=== PATIENT | male | born 1935 | race Caucasian/White ===

== ENCOUNTER 2016-12-20 14:03 | Outpatient (CLI) | payer MEDICARE, OTHER ==
[2016-12-20 19:28] LABS: BASOPHILS % (AUTO) 0.7 %; EOSINOPHILS # (AUTO) 0.1 10^3/uL (0.0-0.7); EOSINOPHILS % (AUTO) 1.7 %; HGB - HEMOGLOBIN 12.8 g/dL (14.0-18.0); LYMPHOCYTES # (AUTO) 1.5 10^3/uL (1.5-3.5); LYMPHOCYTES % (AUTO) 22.9 %; MEAN CORPUSCULAR HEMOGLOBIN 29.9 pg (27.0-31.0); MEAN CORPUSCULAR HGB CONC 32.9 g/dL (32.0-36.0); MEAN CORPUSCULAR VOLUME 90.9 fL (80.0-94.0); MONOCYTES # (AUTO) 0.8 10^3/uL (0.0-1.0); MONOCYTES % (AUTO) 11.4 %; NEUTROPHILS # (AUTO) 4.2 10^3/uL (1.5-6.6); NEUTROPHILS % (AUTO) 63.3 %; RED BLOOD COUNT 4.29 10^6/uL (4.70-6.10); RED CELL DISTRIBUTION WIDTH 13.6 % (12.0-15.0); UNCORRECTED WHITE BLOOD COUNT 6.7 x10^3/uL; WHITE BLOOD COUNT 6.7 x10^3/uL (4.8-10.8)
[2016-12-20 19:57] LABS: ALBUMIN/GLOBULIN RATIO 1.7 (1.0-2.2); BILIRUBIN,TOTAL 0.4 mg/dL (0.2-1.0); BUN - BLOOD UREA NITROGEN 42 mg/dL (6-20); CALCIUM 9.5 mg/dL (8.5-10.3); CARBON DIOXIDE - CO2 27 mmol/L (21-32); CHLORIDE 104 mmol/L (101-111); CHOL/HDL RATIO 3.8 (<5.0); CHOLESTEROL 152 mg/dL; CREATININE 2.6 mg/dL (0.6-1.2); GFR - MDRD 24 (>89); GLUCOSE 67 mg/dL (70-100); HDL CHOLESTEROL 40 mg/dL; LDL/HDL RATIO 2.1 (<3.6); POTASSIUM 4.9 mmol/L (3.5-5.0); SODIUM 138 mmol/L (135-145); TOTAL PROTEIN 6.4 g/dL (6.7-8.2); TRIGLYCERIDES 146 mg/dL; VLDL CHOLESTEROL 29 mg/dL
[2016-12-20 21:05] LABS: H. PYLORI IGG ANTIBODY Negative (Negative); HPYLORI NEG QC Negative (Negative); HPYLORI POS QC POSITIVE (Positive)
== END 2016-12-20 14:04 | disposition home or self-care (01) ==
LOC: LAB.F 14:03
PROVIDERS: ATTEND Internal Medicine
DX: R11.10 Vomiting, unspecified (principal); E78.00 Pure hypercholesterolemia, unspecified; N18.3 Chronic kidney disease, stage 3 (moderate); E78.5 Hyperlipidemia, unspecified; I12.9 Hypertensive chronic kidney disease with stage 1 through stage 4 chronic kidney disease, or unspecified chronic kidney disease
CPT/HCPCS: 36415; 80053; 80061; 85025; 87339

== ENCOUNTER 2017-01-17 13:42 | Outpatient (CLI) | payer MEDICARE, OTHER ==
[2017-01-17 19:14] LABS: CALCIUM 9.2 mg/dL (8.5-10.3); CREATININE 1.8 mg/dL (0.6-1.2); POTASSIUM 4.2 mmol/L (3.5-5.0); URIC ACID 7.7 mg/dL (2.6-7.2)
== END 2017-01-17 13:43 | disposition home or self-care (01) ==
LOC: LAB.F 13:42
PROVIDERS: ATTEND Internal Medicine
DX: N18.3 Chronic kidney disease, stage 3 (moderate) (principal)
CPT/HCPCS: 36415; 80048; 84550

== ENCOUNTER 2018-07-24 11:35 | Outpatient (CLI) | payer MEDICARE, OTHER ==
[2018-07-24 18:40] LABS: HGB - HEMOGLOBIN 14.1 g/dL (14.0-18.0); MEAN CORPUSCULAR HEMOGLOBIN 31.6 pg (27.0-31.0); MEAN CORPUSCULAR HGB CONC 33.4 g/dL (32.0-36.0); MEAN CORPUSCULAR VOLUME 94.5 fL (80.0-94.0); MEAN PLATELET VOLUME 8.6 fL (7.4-11.4); RED BLOOD COUNT 4.46 10^6/uL (4.70-6.10); RED CELL DISTRIBUTION WIDTH 13.8 % (12.0-15.0); WHITE BLOOD COUNT 5.6 x10^3/uL (4.8-10.8)
[2018-07-24 18:49] LABS: ALBUMIN/GLOBULIN RATIO 1.7 (1.0-2.2); ALKALINE PHOSPHATASE 47 IU/L (42-121); ALT ALANINE AMINOTRANSFERASE 22 IU/L (10-60); AST ASPARTATE AMINOTRANSFERASE 32 IU/L (10-42); BILIRUBIN,TOTAL 0.9 mg/dL (0.2-1.0); BUN - BLOOD UREA NITROGEN 28 mg/dL (6-20); CALCIUM 9.1 mg/dL (8.5-10.3); CARBON DIOXIDE - CO2 27 mmol/L (21-32); CHLORIDE 105 mmol/L (101-111); CHOL/HDL RATIO 3.2 (<5.0); CHOLESTEROL 161 mg/dL; CREATININE 1.7 mg/dL (0.6-1.2); GFR - MDRD 39 (>89); GLUCOSE 90 mg/dL (70-100); HDL CHOLESTEROL 50 mg/dL; LDL CHOLESTEROL,CALCULATED 91 mg/dL; LDL/HDL RATIO 1.8 (<3.6); SODIUM 140 mmol/L (135-145); TOTAL PROTEIN 6.4 g/dL (6.7-8.2); URIC ACID 7.5 mg/dL (2.6-7.2); VLDL CHOLESTEROL 20 mg/dL
== END 2018-07-24 11:36 | disposition home or self-care (01) ==
LOC: LAB.F 11:35
PROVIDERS: ATTEND Internal Medicine
DX: M19.90 Unspecified osteoarthritis, unspecified site (principal); E78.5 Hyperlipidemia, unspecified; M10.9 Gout, unspecified
CPT/HCPCS: 36415; 80053; 80061; 83721; 84550; 85025; 85027

== ENCOUNTER 2019-10-11 08:44 | Outpatient (CLI) | payer MEDICARE, OTHER ==
[2019-10-11 09:12] LABS: BUN - BLOOD UREA NITROGEN 26 mg/dL (6-20); CALCIUM 8.8 mg/dL (8.5-10.3); CARBON DIOXIDE - CO2 26 mmol/L (21-32); CHLORIDE 103 mmol/L (101-111); CHOL/HDL RATIO 2.7 (<5.0); CHOLESTEROL 146 mg/dL; CREATININE 1.8 mg/dL (0.6-1.2); GLUCOSE 109 mg/dL (70-100); HDL CHOLESTEROL 54 mg/dL; LDL CHOLESTEROL,CALCULATED 81 mg/dL; LDL/HDL RATIO 1.5 (<3.6); SODIUM 136 mmol/L (135-145); VLDL CHOLESTEROL 11 mg/dL
[2019-10-11 09:14] LABS: BASOPHILS % (AUTO) 0.7 %; EOSINOPHILS # (AUTO) 0.4 10^3/uL (0.0-0.7); EOSINOPHILS % (AUTO) 6.5 %; HGB - HEMOGLOBIN 14.1 g/dL (14.0-18.0); LYMPHOCYTES # (AUTO) 1.9 10^3/uL (1.5-3.5); LYMPHOCYTES % (AUTO) 34.7 %; MEAN CORPUSCULAR HEMOGLOBIN 31.4 pg (27.0-31.0); MEAN CORPUSCULAR HGB CONC 33.3 g/dL (32.0-36.0); MEAN CORPUSCULAR VOLUME 94.4 fL (80.0-94.0); MEAN PLATELET VOLUME 9.6 fL (7.4-11.4); MONOCYTES # (AUTO) 0.7 10^3/uL (0.0-1.0); MONOCYTES % (AUTO) 12.5 %; NEUTROPHILS # (AUTO) 2.5 10^3/uL (1.5-6.6); NEUTROPHILS % (AUTO) 45.4 %; PLT - PLATELET COUNT 240 10^3/uL (130-450); RED BLOOD COUNT 4.49 10^6/uL (4.70-6.10); RED CELL DISTRIBUTION WIDTH 13.1 % (12.0-15.0); WHITE BLOOD COUNT 5.5 x10^3/uL (4.8-10.8)
[2019-10-11 10:02] LABS: CREATININE,URINE 115.6 mg/dL; MICROALBUMIN,URINE 18.5 mg/dL (0-300.0)
== END 2019-10-11 08:45 | disposition home or self-care (01) ==
LOC: LAB 08:44
PROVIDERS: ATTEND Physician Assistant
DX: I12.9 Hypertensive chronic kidney disease with stage 1 through stage 4 chronic kidney disease, or unspecified chronic kidney disease (principal); N18.3 Chronic kidney disease, stage 3 (moderate); Z79.899 Other long term (current) drug therapy; E78.5 Hyperlipidemia, unspecified
CPT/HCPCS: 36415; 80048; 80061; 82043; 82570; 83721; 85025

== ENCOUNTER 2020-04-10 10:50 | Outpatient (CLI) | payer MEDICARE, OTHER | END 2020-04-10 10:51 | disposition home or self-care (01) | LOC: COV 10:50 | PROVIDERS: ATTEND Family Medicine | DX: M79.10 Myalgia, unspecified site (principal); Z20.828 Contact with and (suspected) exposure to other viral communicable diseases ==

== ENCOUNTER 2021-08-05 07:54 | Outpatient (CLI) | payer MEDICARE, OTHER ==
[2021-08-05 15:19] LABS: BASOPHILS # (AUTO) 0.1 10^3/uL (0.0-0.1); BASOPHILS % (AUTO) 1.3 %; EOSINOPHILS # (AUTO) 0.4 10^3/uL (0.0-0.7); EOSINOPHILS % (AUTO) 6.9 %; HCT - HEMATOCRIT 41.9 % (42.0-52.0); HGB - HEMOGLOBIN 13.6 g/dL (14.0-18.0); LYMPHOCYTES # (AUTO) 1.7 10^3/uL (1.5-3.5); LYMPHOCYTES % (AUTO) 32.5 %; MEAN CORPUSCULAR HEMOGLOBIN 30.8 pg (27.0-31.0); MEAN CORPUSCULAR HGB CONC 32.5 g/dL (32.0-36.0); MEAN CORPUSCULAR VOLUME 94.8 fL (80.0-94.0); MEAN PLATELET VOLUME 10.2 fL (7.4-11.4); MONOCYTES # (AUTO) 0.6 10^3/uL (0.0-1.0); MONOCYTES % (AUTO) 12.2 %; NEUTROPHILS # (AUTO) 2.5 10^3/uL (1.5-6.6); NEUTROPHILS % (AUTO) 46.9 %; PLT - PLATELET COUNT 238 10^3/uL (130-450); RED BLOOD COUNT 4.42 10^6/uL (4.70-6.10); RED CELL DISTRIBUTION WIDTH 13.5 % (12.0-15.0); WHITE BLOOD COUNT 5.2 x10^3/uL (4.8-10.8)
[2021-08-05 15:36] LABS: ALBUMIN 3.8 g/dL (3.2-5.5); ALBUMIN/GLOBULIN RATIO 1.7 (1.0-2.2); ALKALINE PHOSPHATASE 48 IU/L (42-121); ALT ALANINE AMINOTRANSFERASE 18 IU/L (10-60); AST ASPARTATE AMINOTRANSFERASE 24 IU/L (10-42); BILIRUBIN,TOTAL 0.6 mg/dL (0.2-1.0); BUN - BLOOD UREA NITROGEN 30 mg/dL (6-20); CARBON DIOXIDE - CO2 28 mmol/L (21-32); CHLORIDE 104 mmol/L (101-111); CHOL/HDL RATIO 2.6 (<5.0); CHOLESTEROL 154 mg/dL; CREATININE 1.5 mg/dL (0.6-1.2); GFR - MDRD 45 (>89); GLUCOSE 102 mg/dL (70-100); HDL CHOLESTEROL 60 mg/dL; POTASSIUM 4.3 mmol/L (3.5-5.0); SODIUM 139 mmol/L (135-145); TRIGLYCERIDES 37 mg/dL
== END 2021-08-05 07:55 | disposition home or self-care (01) ==
LOC: LAB.S 07:54
PROVIDERS: ATTEND Internal Medicine
DX: I10 Essential (primary) hypertension (principal); E78.5 Hyperlipidemia, unspecified
CPT/HCPCS: 36415; 80053; 80061; 83721; 85025

== ENCOUNTER 2021-08-28 06:23 | Day surgery (SDC) | payer MEDICARE ==
[2021-08-28] MEDS ORDERED: LACTATED RINGERS 1,000 ML IV ONE ×2 (06:52→08:03)
[2021-08-28] MEDS ORDERED: PROPOFOL 500 MG/50 ML 500 MG/50 ML VIAL ONE (06:55)
--- NOTE | 2021-08-28 07:04 | ANESTHESIA ---
Pre-Anesthesia VS, & Labs - Diagnosis screening - Procedure colonoscopy Vital Signs: Temp Pulse Resp BP Pulse Ox 36.4 C L 72 16 185/95 H 99 08/28/21 06:43 08/28/21 06:43 08/28/21 06:43 08/28/21 06:43 08/28/21 06:43 Height: 6 ft Weight (kg): 81.2 kg Body Mass Index: 24.3 BMI Classification: Healthy weight - NPO >8 hours - Lab Results Lab results reviewed: No Home Medications and Allergies Amitriptyline [Elavil] 50 mg PO HS 05/16/13 Aspirin [Aspir 81] 81 mg PO DAILY 05/16/13 Felodipine [Felodipine ER] 5 mg PO DAILY 05/16/13 Fluticasone [Flonase] 1 sprays ETTA BID 05/16/13 Multivitamin [Multivitamins] 1 each PO DAILY 05/16/13 [place]-3 Fatty Acids [Fish Oil] 500 mg PO 05/16/13 Simvastatin [Zocor] 40 mg PO QPM 05/16/13 hydroCHLOROthiazide [Hydrochlorothiazide] 25 mg PO DAILY 05/16/13 lisinopriL [Prinivil] 5 mg PO DAILY 05/16/13 Atenolol 50 mg PO DAILY 09/25/15 Omeprazole [Prilosec] 20 mg PO DAILY 09/25/15 Allergies/Adverse Reactions: Allergies Allergy/AdvReac Type Severity Reaction Status Date / Time No Known Drug Allergies Allergy Verified 05/16/13 19:22 Anes History & Medical History - Anesthetic History Anesthesia Complications: reports: No previous complications Family history of Anesthesia Complications: Denies Family history of Malignant Hyperthermia: Denies - Medical History Cardiovascular: reports: Hypertension, High cholesterol Pulmonary: reports: None Gastrointestinal: reports: GERD Urinary: reports: None Musculoskeletal: reports: Osteoarthritis Endocrine/Autoimmune: reports: Other Smoking Status: Never smoker - Surgical History General: reports: Colonoscopy, Other Exam General: Alert, Oriented x3, Cooperative, No acute distress Dental: Dentures full Upper Mouth Openin Fingerbreadth Neck Mobility: Normal Mallampati classification: II Plan Anesthesia Type: General, Total IV Consent for Procedure(s) Verified and Reviewed: Yes Code Status: Attempt Resuscitation ASA classification: 2-Mild systemic disease Is this case an emergency?: No
--- NOTE | 2021-08-28 07:25 | HISTORY & PHYSICAL EXAMINATION ---
Chief Complaint - Chief Complaint Chief Complaint: due for colon cancer screening History of Present Illness - History Obtained From Records Reviewed: yes History obtained from: pt Exam Limitations: none - History of Present Illness HPI Comment/Other: due for colon cancer screening. other than chronic constipation no problems. History - Past Medical History Cardiovascular: reports: Hypertension, High cholesterol Respiratory: reports: None Endocrine/Autoimmune: reports: Other GI: reports: GERD : reports: None HEENT: reports: Macular degeneration Psych: reports: None Musculoskeletal: reports: Osteoarthritis MRSA Hx?: No - Past Surgical History General: reports: Colonoscopy, Other Meds/Allgy - Home Medications Home Medications: Ambulatory Orders Medication Instructions Recorded Confirmed Amitriptyline [Elavil] 50 mg PO HS 05/16/13 08/27/21 Aspirin [Aspir 81] 81 mg PO DAILY 05/16/13 08/27/21 Felodipine [Felodipine ER] 5 mg PO DAILY 05/16/13 08/27/21 Fluticasone [Flonase] 1 sprays ETTA BID 05/16/13 08/27/21 Multivitamin [Multivitamins] 1 each PO DAILY 05/16/13 08/27/21 [place]-3 Fatty Acids [Fish Oil] 500 mg PO 05/16/13 05/16/13 Simvastatin [Zocor] 40 mg PO QPM 05/16/13 08/27/21 hydroCHLOROthiazide 25 mg PO DAILY 05/16/13 09/25/15 [Hydrochlorothiazide] lisinopriL [Prinivil] 5 mg PO DAILY 05/16/13 08/27/21 Atenolol 50 mg PO DAILY 09/25/15 08/27/21 Omeprazole [Prilosec] 20 mg PO DAILY 09/25/15 08/27/21 - Allergies Allergies/Adverse Reactions: Allergies Allergy/AdvReac Type Severity Reaction Status Date / Time No Known Drug Allergies Allergy Verified 05/16/13 19:22 Review of Systems - Other Findings Other Findings: 10 pt ros as above otherwise unremarkable Exam - Vital Signs Vital Signs: Vital Signs x48h Temp Pulse Resp BP Pulse Ox 08/28/21 06:43 36.4 C L 72 16 185/95 H 99 - Physical Exam General Appearance: positive: No acute distress, Alert Eyes Bilateral: positive: PERRL, EOMI, No scleral icterus ENT: positive: No signs of dehydration Neck: positive: No JVD Respiratory: positive: No respiratory distress, Breath sounds nml Cardiovascular: positive: Regular rate & rhythm Abdomen: positive: Non-tender, No distention Neurologic/Psychiatric: positive: Oriented x3 Conclusion/Plan - Problem List (1) Colon cancer screening Conclusion/Plan: plan colonoscopy. parq held and consent obtained - Lab Results Lab results reviewed: No
[2021-08-28] MEDS ORDERED: GLYCOPYRROLATE 1 MG/5 ML VIAL ONE (07:50)
[2021-08-28 09:10] VITALS: BP 152/79
--- NOTE | 2021-08-28 14:59 | ANESTHESIA POST OP EVALUATION ---
Anesthesia Post Eval - Post Anesthesia Eval Vitals: Last Vital Signs Temp 36.3 C L 08/28/21 08:40 Pulse 70 08/28/21 08:40 Resp 16 08/28/21 08:40 BP 152/79 H 08/28/21 08:40 Pulse Ox 97 08/28/21 08:40 CV Function Including HR & BP: Stable Pain Control: Satisfactory Nausea & Vomiting: Negative Mental Status: Baseline Respiratory Status: Airway Patent Hydration Status: Satisfactory Anesthesia Complications: None
== END 2021-08-28 06:24 | disposition home or self-care (01) ==
LOC: SDS 06:23
PROVIDERS: ATTEND Surgery
DX: Z12.11 Encounter for screening for malignant neoplasm of colon (principal); K59.09 Other constipation; I10 Essential (primary) hypertension; Z79.82 Long term (current) use of aspirin; Z79.899 Other long term (current) drug therapy
CPT/HCPCS: 45378; J7120

== ENCOUNTER 2021-09-21 10:36 | Outpatient (CLI) | payer MEDICARE ==
[2021-09-21] MEDS ORDERED: IOVERSOL 320 50 ML VIAL ONE (10:49)
[2021-09-21 10:59] LABS: CREATININE 1.6 mg/dL (0.6-1.2)
[2021-09-21] MEDS ORDERED: IOVERSOL 320 50 ML VIAL IVP ONE (13:05)
--- NOTE | 2021-09-22 09:59 | CT Report ---
PROCEDURE: Abdomen/Pelvis W INDICATIONS: CHRONIC CONSTIPATION CONTRAST: IV CONTRAST: Optiray 320 ml: 100 PO CONTRAST: Optiray 320 ml50 TECHNIQUE: After the administration of oral and intravenous contrast, 5 mm thick sections acquired from the diap hragms to the symphysis. 5 mm thick coronal and sagittal reformats were acquired. For radiation dos e reduction, the following was used: automated exposure control, adjustment of mA and/or kV accordin g to patient size. COMPARISON: Ultrasound renal, 09/13/2011. FINDINGS: Image quality: Excellent. ABDOMEN: Lung bases: Bilateral lower lobe scars and atelectasis. Heart size is normal. Mild coronary artery calcification. No pericardial effusion. There is a moderate-sized hiatal hernia. Solid organs: Liver is normal in size. Mild hepatic steatosis. A 0.6 cm enhancing nodule is noted i n the posterior segment of the right hepatic lobe, most likely a hepatic angioma. Spleen is normal in size. There is a 0.7 cm enhancing nodule in spleen, most likely hemangioma. Gallbladder is normal. Biliary system is non dilated. Pancreas enhances normally. No adrenal nodul es. Left kidney is small to 7.2 cm long with cortical thinning consistent with renal atrophy. This findin g is new since the last ultrasound. Right kidney is normal in size. Bilateral renal cysts are present . Calcifications in the renal jess bilaterally are most likely vascular in nature. No renal stones. Peritoneum and bowel: Bowel loops demonstrate normal wall thickness and caliber. There is a large a mount stool in colon. Normal appendix. No free fluid or air. Nodes and vessels: No retroperitoneal or mesenteric adenopathy by size criteria. Severe atherosclero tic calcifications. There is a fusiform infrarenal abdominal aortic aneurysm measuring 3.6 cm AP x 3. 5 cm transverse. Miscellaneous: No ventral hernias. PELVIS: Genitourinary: Prostate is enlarged. Bladder wall thickness is normal. Miscellaneous: No inguinal hernias or adenopathy. Bilateral hydroceles in scrotum. Bones: No suspicious bony lesions. No vertebral body compression fractures. There are severe degen erative changes in lower thoracic and lumbar spine. IMPRESSION: 1. A large amount of stool in colon consistent with constipation. 2. Small enhancing nodules in liver and spleen, most likely hemangiomas. Ultrasound is suggested as i nitial follow-up. If clinically indicated, MRI may be helpful. 3. Moderate left renal atrophy. There are bilateral renal cysts. 4. Infrarenal abdominal aortic aneurysm measuring 3.6 x 3.5 cm. 5. Moderate sized hiatal hernia. 6. Prostatomegaly. 7. Bilateral scrotal hydroceles. 8. Severe atherosclerosis. Reviewed by: Liu Valderrama MD on 09/22/2021 9:58 AM PDT Approved by: Liu Valderrama MD on 09/22/2021 9:58 AM PDT Station ID: [id number]
== END 2021-09-21 10:37 | disposition home or self-care (01) ==
LOC: DI 10:36
PROVIDERS: ATTEND Family Medicine
DX: K59.09 Other constipation (principal); R93.2 Abnormal findings on diagnostic imaging of liver and biliary tract; R93.89 Abnormal findings on diagnostic imaging of other specified body structures; N26.1 Atrophy of kidney (terminal); N28.1 Cyst of kidney, acquired; I71.4 Abdominal aortic aneurysm, without rupture; K44.9 Diaphragmatic hernia without obstruction or gangrene; N40.0 Benign prostatic hyperplasia without lower urinary tract symptoms; N43.3 Hydrocele, unspecified; I70.90 Unspecified atherosclerosis
CPT/HCPCS: 36415; 82565

== ENCOUNTER 2022-04-09 06:28 | Outpatient (CLI) | payer MEDICARE ==
--- NOTE | 2022-04-09 13:21 | Ultrasound Report ---
PROCEDURE: Retroperitoneal Limited INDICATIONS: AAA TECHNIQUE: Real time scanning was performed of the aorta and iliac arteries, with image documentatio n. COMPARISON: CT of abdomen and pelvis dated 09/22/2019 to FINDINGS: Aorta: Proximal aortic is not well seen due to overlying bowel gas. Mid-aorta measures 2.2 x 2.0 cm. Distal aortic diameter is 3.2 x 3.4 cm. Iliac arteries: Right common iliac artery measures 1.4 x 1.4 cm. Left common iliac artery measures 1.3 x 1.1 cm. Extensive atherosclerotic plaques are noted throughout abdominal aorta and bilateral iliac arteries. IMPRESSION: 1. Limited evaluation of proximal abdominal aorta due to overlying bowel gas. Mild fusiform distal ab dominal aortic aneurysm measures 3.2 x 3.4 cm in largest AP and transverse diameters. Extensive ather osclerotic disease throughout abdominal aorta and bilateral iliac arteries. Reviewed by: Edgardo Holly MD on 04/09/2022 1:20 PM PST Approved by: Edgardo Holly MD on 04/09/2022 1:20 PM PST Station ID: [id number]
== END 2022-04-09 06:29 | disposition home or self-care (01) ==
LOC: DI 06:28
PROVIDERS: ATTEND Registered Nurse
DX: I71.40 Abdominal aortic aneurysm, without rupture, unspecified (principal); I70.0 Atherosclerosis of aorta

== ENCOUNTER 2022-07-02 11:55 | Outpatient (CLI) | payer MEDICARE ==
[2022-07-02 15:34] LABS: CREATININE 1.7 mg/dL (0.6-1.2); POTASSIUM 4.5 mmol/L (3.5-5.0)
== END 2022-07-02 11:56 | disposition home or self-care (01) ==
LOC: LAB.S 11:55
PROVIDERS: ATTEND Internal Medicine Nephrology
DX: N05.9 Unspecified nephritic syndrome with unspecified morphologic changes (principal)
CPT/HCPCS: 36415; 80048

== ENCOUNTER 2022-07-28 11:09 | Outpatient (CLI) | payer MEDICARE ==
[2022-07-28 14:57] LABS: BASOPHILS # (AUTO) 0.1 10^3/uL (0.0-0.1); BASOPHILS % (AUTO) 0.9 %; EOSINOPHILS # (AUTO) 0.2 10^3/uL (0.0-0.7); EOSINOPHILS % (AUTO) 3.4 %; HCT - HEMATOCRIT 41.3 % (42.0-52.0); HGB - HEMOGLOBIN 12.9 g/dL (14.0-18.0); LYMPHOCYTES # (AUTO) 1.4 10^3/uL (1.5-3.5); LYMPHOCYTES % (AUTO) 24.6 %; MEAN CORPUSCULAR HEMOGLOBIN 29.4 pg (27.0-31.0); MEAN CORPUSCULAR HGB CONC 31.2 g/dL (32.0-36.0); MEAN CORPUSCULAR VOLUME 94.1 fL (80.0-94.0); MEAN PLATELET VOLUME 10.4 fL (7.4-11.4); MONOCYTES # (AUTO) 0.9 10^3/uL (0.0-1.0); MONOCYTES % (AUTO) 14.7 %; NEUTROPHILS # (AUTO) 3.3 10^3/uL (1.5-6.6); NEUTROPHILS % (AUTO) 56.1 %; PLT - PLATELET COUNT 257 10^3/uL (130-450); RED BLOOD COUNT 4.39 10^6/uL (4.70-6.10); WHITE BLOOD COUNT 5.9 x10^3/uL (4.8-10.8)
[2022-07-28 15:06] LABS: CALCIUM 9.3 mg/dL (8.5-10.3); CREATININE 1.8 mg/dL (0.6-1.2); POTASSIUM 4.4 mmol/L (3.5-5.0)
[2022-07-28 15:48] LABS: INR 0.9 (0.8-1.2); PT - PROTHROMBIN TIME 10.6 secs (9.9-12.6)
== END 2022-07-28 11:10 | disposition home or self-care (01) ==
LOC: LAB.S 11:09
PROVIDERS: ATTEND Internal Medicine Cardiovascular Disease
DX: I25.118 Atherosclerotic heart disease of native coronary artery with other forms of angina pectoris (principal)
CPT/HCPCS: 36415; 80048; 85025; 85610

== ENCOUNTER 2022-09-07 09:27 | Outpatient (CLI) | payer MEDICARE ==
[2022-09-07 15:57] LABS: ALBUMIN 3.5 g/dL (3.2-5.5); CREATININE 1.9 mg/dL (0.6-1.2); PHOSPHORUS 3.7 mg/dL (2.5-4.6); POTASSIUM 4.4 mmol/L (3.5-5.0)
== END 2022-09-07 09:28 | disposition home or self-care (01) ==
LOC: LAB.S 09:27
PROVIDERS: ATTEND Internal Medicine Cardiovascular Disease
DX: I50.22 Chronic systolic (congestive) heart failure (principal)
CPT/HCPCS: 36415; 80069

== ENCOUNTER 2022-09-22 10:06 | Outpatient (CLI) | payer MEDICARE ==
[2022-09-22 14:47] LABS: ALBUMIN 3.4 g/dL (3.2-5.5); CALCIUM 8.9 mg/dL (8.5-10.3); CREATININE 2.2 mg/dL (0.6-1.2); PHOSPHORUS 3.6 mg/dL (2.5-4.6); POTASSIUM 4.2 mmol/L (3.5-5.0)
== END 2022-09-22 10:07 | disposition home or self-care (01) ==
LOC: LAB.S 10:06
PROVIDERS: ATTEND Internal Medicine Cardiovascular Disease
DX: I50.22 Chronic systolic (congestive) heart failure (principal)
CPT/HCPCS: 36415; 80069

== ENCOUNTER 2022-10-14 14:31 | Outpatient (CLI) | payer MEDICARE ==
--- NOTE | 2022-10-14 14:57 | XRAY Report ---
PROCEDURE: Chest 2 View X-Ray INDICATIONS: SHORTNESS OF BREATH/CHF TECHNIQUE: 2 views of the chest were acquired. COMPARISON: None. FINDINGS: Surgical changes and devices: None. Lungs and pleura: There is a coarsened interstitial appearance of the bases, right greater than left . Overall appearance of increased pulmonary vascularity is present. Blunting of the costophrenic angl es are noted. Mediastinum: Mediastinal contours appear normal. Heart size is enlarged. Bones and chest wall: No suspicious bony lesions. Overlying soft tissues appear unremarkable. IMPRESSION: Increased pulmonary vascularity with cardiomegaly suggestive of edema. Trace costophrenic angle blunt ing is present possibly related to scarring versus trace effusions. Mild coarsened interstitial appearance in the right base which may represent dependent edema versus d eveloping pneumonia/atelectasis. Reviewed by: Deisy Ramirez MD on 10/14/2022 2:56 PM PDT Approved by: Deisy Ramirez MD on 10/14/2022 2:56 PM PDT Station ID: [id number]
[2022-10-14 19:46] LABS: BASOPHILS # (AUTO) 0.1 10^3/uL (0.0-0.1); BASOPHILS % (AUTO) 0.7 %; EOSINOPHILS # (AUTO) 0.2 10^3/uL (0.0-0.7); EOSINOPHILS % (AUTO) 2.4 %; HGB - HEMOGLOBIN 12.3 g/dL (14.0-18.0); LYMPHOCYTES # (AUTO) 1.2 10^3/uL (1.5-3.5); LYMPHOCYTES % (AUTO) 15.8 %; MEAN CORPUSCULAR HEMOGLOBIN 29.1 pg (27.0-31.0); MEAN CORPUSCULAR HGB CONC 31.5 g/dL (32.0-36.0); MEAN CORPUSCULAR VOLUME 92.4 fL (80.0-94.0); MEAN PLATELET VOLUME 10.1 fL (7.4-11.4); MONOCYTES # (AUTO) 0.7 10^3/uL (0.0-1.0); MONOCYTES % (AUTO) 9.9 %; NEUTROPHILS # (AUTO) 5.3 10^3/uL (1.5-6.6); NEUTROPHILS % (AUTO) 70.9 %; PLT - PLATELET COUNT 319 10^3/uL (130-450); RED BLOOD COUNT 4.22 10^6/uL (4.70-6.10); RED CELL DISTRIBUTION WIDTH 15.5 % (12.0-15.0); WHITE BLOOD COUNT 7.5 x10^3/uL (4.8-10.8)
[2022-10-14 20:14] LABS: ALBUMIN 3.3 g/dL (3.2-5.5); ALBUMIN/GLOBULIN RATIO 1.1 (1.0-2.2); BILIRUBIN,TOTAL 0.7 mg/dL (0.2-1.0); CREATININE 2.1 mg/dL (0.6-1.2); POTASSIUM 4.5 mmol/L (3.5-5.0); TOTAL PROTEIN 6.4 g/dL (6.7-8.2)
== END 2022-10-14 14:32 | disposition home or self-care (01) ==
LOC: DI.S 14:31
PROVIDERS: ATTEND Registered Nurse
DX: I50.9 Heart failure, unspecified (principal); R06.02 Shortness of breath
CPT/HCPCS: 36415; 80053; 84484; 85025

== ENCOUNTER 2022-11-03 08:00 | Outpatient (CLI) | payer MEDICARE ==
--- NOTE | 2022-11-03 10:55 | XRAY Report ---
PROCEDURE: Chest 2 View X-Ray INDICATIONS: SHORTNESS OF BREATH TECHNIQUE: 2 views of the chest were acquired. COMPARISON: CXR 10/14/2022. Lung bases on CT abdomen pelvis 09/21/2021. FINDINGS: Surgical changes and devices: None. Lungs and pleura: No pleural effusions or pneumothorax. Bilateral hazy opacity, similar. Mediastinum: Mediastinal contours appear unchanged. Hiatal hernia. Heart size is enlarged. Bones and chest wall: No suspicious bony lesions. Overlying soft tissues appear unremarkable. IMPRESSION: No acute cardiopulmonary process. Suspect interstitial lung disease. Reviewed by: Zacarias Pelayo MD on 11/03/2022 10:54 AM PDT Approved by: Zacarias Pelayo MD on 11/03/2022 10:54 AM PDT Station ID: [id number]
== END 2022-11-03 23:59 | disposition home or self-care (01) ==
LOC: DI.S 08:00
PROVIDERS: ATTEND Nurse Practitioner
DX: R06.02 Shortness of breath (principal); I50.9 Heart failure, unspecified

== ENCOUNTER 2022-11-11 11:55 | Outpatient (CLI) | payer MEDICARE ==
[2022-11-11 14:17] LABS: BASOPHILS % (AUTO) 0.2 %; EOSINOPHILS % (AUTO) 0.2 %; HCT - HEMATOCRIT 39.6 % (42.0-52.0); HGB - HEMOGLOBIN 12.3 g/dL (14.0-18.0); LYMPHOCYTES # (AUTO) 0.8 10^3/uL (1.5-3.5); LYMPHOCYTES % (AUTO) 7.3 %; MEAN CORPUSCULAR HGB CONC 31.1 g/dL (32.0-36.0); MONOCYTES # (AUTO) 1.1 10^3/uL (0.0-1.0); MONOCYTES % (AUTO) 10.5 %; NEUTROPHILS # (AUTO) 8.5 10^3/uL (1.5-6.6); NEUTROPHILS % (AUTO) 81.5 %; PLT - PLATELET COUNT 317 10^3/uL (130-450); WHITE BLOOD COUNT 10.4 x10^3/uL (4.8-10.8)
[2022-11-11 14:55] LABS: CALCIUM 9.5 mg/dL (8.5-10.3); CREATININE 2.4 mg/dL (0.6-1.2); POTASSIUM 5.2 mmol/L (3.5-5.0)
== END 2022-11-11 11:56 | disposition home or self-care (01) ==
LOC: LAB.S 11:55
PROVIDERS: ATTEND Emergency Medicine
DX: I50.9 Heart failure, unspecified (principal)
CPT/HCPCS: 36415; 80048; 83880; 85025

== ENCOUNTER 2022-11-12 07:00 | Outpatient (CLI) | payer MEDICARE ==
--- NOTE | 2022-11-12 13:32 | XRAY Report ---
PROCEDURE: Chest 2 View X-Ray INDICATIONS: CHF TECHNIQUE: 2 views of the chest were acquired. COMPARISON: Chest x-ray, 11/03/2022. FINDINGS: Surgical changes and devices: None. Lungs and pleura: Chronic bilateral interstitial infiltrates, progressively increased. No pleural ef fusions or pneumothorax. Lungs are clear. Mediastinum: Mediastinal contours appear normal. Heart size is prominent. Bones and chest wall: No suspicious bony lesions. Overlying soft tissues appear unremarkable. IMPRESSION: Chronic bilateral interstitial infiltrates, increased compared to prior exams. Differential diagnoses are exacerbation of CHF versus chronic interstitial lung disease. Reviewed by: Liu Valderrama MD on 11/12/2022 1:31 PM PDT Approved by: Liu Valderrama MD on 11/12/2022 1:31 PM PDT Station ID: [id number]
== END 2022-11-12 23:59 | disposition home or self-care (01) ==
LOC: DI.S 07:00
PROVIDERS: ATTEND Emergency Medicine
DX: I50.9 Heart failure, unspecified (principal)

== ENCOUNTER 2022-11-29 07:00 | Outpatient (CLI) | payer MEDICARE ==
--- NOTE | 2022-11-29 17:56 | XRAY Report ---
PROCEDURE: Abdomen 2 View X-Ray INDICATIONS: CONSTIPATION TECHNIQUE: 2 views of the abdomen were acquired. COMPARISON: CT abdomen/pelvis 09/21/2021 FINDINGS: Surgical changes and devices: None. Bowel: No pneumoperitoneum. The bowel gas pattern is normal. Moderate to large volume of stool in t he colon. Soft tissues: No masses; visualized solid organ contours appear normal in size. No suspicious abdom inal calcifications. Left upper quadrant vascular calcifications are present. Bones: No suspicious bony abnormalities. Remote prior healed right rib fractures. Degenerative nayak ges are seen in the spine. IMPRESSION: Moderate to large volume of stool in the colon. Reviewed by: Chucky Clark MD on 11/29/2022 5:54 PM PDT Approved by: Chucky Clark MD on 11/29/2022 5:54 PM PDT Station ID: [id number]
== END 2022-11-29 23:59 | disposition home or self-care (01) ==
LOC: DI.S 07:00
PROVIDERS: ATTEND Physician Assistant Medical
DX: K59.00 Constipation, unspecified (principal); R14.0 Abdominal distension (gaseous)

== ENCOUNTER 2022-12-24 15:20 | Outpatient (CLI) | payer MEDICARE | END 2022-12-24 23:59 | disposition critical access hospital (66) | LOC: EMS 15:20 | DX: R53.1 Weakness (principal); R53.83 Other fatigue | CPT/HCPCS: A0425; A0429 ==

== ENCOUNTER 2022-12-24 16:46 | Emergency (ER) | payer MEDICARE ==
--- NOTE | 2022-12-24 17:22 | ED Physician Documentation ---
History of Present Illness - Stated complaint Stated Complaint: GEN WEAKNESS - History obtained from History obtained from: Patient, Family - Additonal information Additional information: 87-year-old gentleman with history of gout, CHF with cardiomyopathy and recent AICD placement. His EF is unknown. He is not anticoagulated. He presents by ambulance accompanied by the . He has been confused since yesterday with diarrhea. He complains of pain in the right third through fifth fingers. He denies chest pain or trouble breathing. History is limited because of confusion. His says he is not usually confused. PD PAST MEDICAL HISTORY - Past Medical History Cardiovascular: Hypertension, High cholesterol Respiratory: None Endocrine/Autoimmune: Other GI: GERD : None Musculoskeletal: Osteoarthritis - Past Surgical History Past Surgical History: No - Present Medications Home Medications: Ambulatory Orders Medication Instructions Recorded Confirmed Amitriptyline [Elavil] 50 mg PO HS 05/16/13 08/27/21 Aspirin [Aspir 81] 81 mg PO DAILY 05/16/13 08/27/21 Felodipine [Felodipine ER] 5 mg PO DAILY 05/16/13 08/27/21 Fluticasone [Flonase] 1 sprays ETTA BID 05/16/13 08/27/21 Multivitamin [Multivitamins] 1 each PO DAILY 05/16/13 08/27/21 [place]-3 Fatty Acids [Fish Oil] 500 mg PO 05/16/13 05/16/13 Simvastatin [Zocor] 40 mg PO QPM 05/16/13 08/27/21 hydroCHLOROthiazide 25 mg PO DAILY 05/16/13 09/25/15 [Hydrochlorothiazide] lisinopriL [Prinivil] 5 mg PO DAILY 05/16/13 08/27/21 Atenolol 50 mg PO DAILY 09/25/15 08/27/21 Omeprazole [Prilosec] 20 mg PO DAILY 09/25/15 08/27/21 - Allergies Allergies/Adverse Reactions: Allergies Allergy/AdvReac Type Severity Reaction Status Date / Time No Known Drug Allergies Allergy Verified 12/24/22 17:22 - Social History Does the pt smoke?: No Smoking Status: Never smoker Does the pt drink ETOH?: Yes PD ED PE NORMAL - Vitals Vital signs reviewed: Yes - General General: Other (He is alert and oriented to person. Thinks he is at [facility]. Says it is December 25.) - HEENT HEENT: PERRL, EOMI, Other (Very dry mucous membranes) - Neck Neck: Supple, no meningeal sign, No bony TTP - Cardiac Cardiac: RRR, No murmur, Other (Pacemaker placement left upper chest wall with Dermabond in place.) - Respiratory Respiratory: No respiratory distress, Clear bilaterally - Abdomen Abdomen: Other (Scaphoid abdomen with multiple rockhard masses without tenderness.) - Male Male : Other (B SCROTAL MASSES C/W HYDROCELES ON CT) - Derm Derm: Normal color, Warm and dry - Extremities Extremities: Other (3+ pitting pedal edema of the lower extremities) - Neuro Eye Opening: Spontaneous Motor: Obeys Commands Verbal: Confused GCS Score: 14 Results - Vitals Vitals: Vital Signs - 24 hr 12/24/22 12/24/22 17:12 21:01 Temperature 36.1 C L Heart Rate 78 80 Respiratory 20 16 Rate Blood Pressure 116/85 H 116/94 H O2 Saturation 93 Oxygen O2 Source Room air - EKG (time done) 1725 EKG releavant findings:: EKG personally interpreted by author of this note. Relevant findings are: Rate: Rate (enter#) (78) Rhythm: Paced (Atrial sensed ventricular paced) Intervals: Normal CO Computer interpretation: Agree with computer - Labs Labs: Laboratory Tests 12/24/22 12/24/22 12/24/22 17:32 17:32 17:32 WBC 13.3 H RBC 4.44 L Hgb 12.4 L Hct 39.2 L MCV 88.3 MCH 27.9 MCHC 31.6 L RDW 20.0 H Plt Count 131 MPV 10.2 Neut # (Auto) 11.4 H Lymph # (Auto) 1.0 L Evans # (Auto) 0.8 Eos # (Auto) 0.0 Baso # (Auto) 0.0 Absolute Nucleated RBC 0.00 Nucleated RBC % 0.0 PT 19.9 H INR 1.9 H Sodium 140 Potassium 4.9 H Chloride 103 Carbon Dioxide 22 Anion Gap 15.0 H BUN 117 H* Creatinine 3.1 H Estimated GFR (MDRD) 19 L Glucose 116 H Lactic Acid Calcium 9.7 Magnesium 2.8 H Total Bilirubin 2.2 H AST 523 H ALT 369 H Alkaline Phosphatase 165 H Total Protein 6.3 L Albumin 3.3 Globulin 3.0 Albumin/Globulin Ratio 1.1 Ethyl Alcohol < 10.0 12/24/22 17:32 WBC RBC Hgb Hct MCV MCH MCHC RDW Plt Count MPV Neut # (Auto) Lymph # (Auto) Evans # (Auto) Eos # (Auto) Baso # (Auto) Absolute Nucleated RBC Nucleated RBC % PT INR Sodium Potassium Chloride Carbon Dioxide Anion Gap BUN Creatinine Estimated GFR (MDRD) Glucose Lactic Acid 3.2 H* Calcium Magnesium Total Bilirubin AST ALT Alkaline Phosphatase Total Protein Albumin Globulin Albumin/Globulin Ratio Ethyl Alcohol PD Medical Decision Making - ED course ED course: This is an 87-year-old gentleman who presents with confusion. He has had diarrhea. The confusion is new. He has a history of CHF and gout and has a recent AICD placement. Work-up in the emergency department demonstrates an elevated white count at 13,000 with mild anemia. His chemistry panel shows a significant worsening of his chronic renal insufficiency. Of late his usual baseline creatinine has been in the low twos, today it is three 1.1 with significant uremia. He also has elevated liver enzymes. He also has a lactic acidosis. He was hydrated and blood cultures were obtained. An ultrasound of the abdomen since he had the elevated liver enzymes was done and shows sludge in the gallbladder with distended gallbladder, possible cholecystitis. And a CT of the abdomen demonstrates bibasilar opacities concerning for atypical pneumonia. Cardiomegaly. Mild ascites. He also has incidental findings including a AAA. was initially at the bedside but had to go home. Given the potential for cholecystitis especially with elevated liver enzymes I placed a call to our on-call surgeon, Dr. Hernandez who agreed he needs to go to a tertiary facility given his underlying comorbidities and exacerbations of same. [facility] to [facility] since [facility] is where he just had his AICD placed at 9:06 PM for potential transfer. I did update the by phone and she thought she would want fairly aggressive treatment including potential surgery at this juncture. Departure - Departure Disposition: 02 Transfer Acute Care Hosp Clinical Impression: Cholecystitis, Pneumonia, ARF (acute renal failure), Delirium, Cardiomyopathy Condition: Serious
[2022-12-24 17:40] LABS: BASOPHILS % (AUTO) 0.1 %; EOSINOPHILS % (AUTO) 0.2 %; HCT - HEMATOCRIT 39.2 % (42.0-52.0); HGB - HEMOGLOBIN 12.4 g/dL (14.0-18.0); LYMPHOCYTES % (AUTO) 7.2 %; MEAN CORPUSCULAR HEMOGLOBIN 27.9 pg (27.0-31.0); MEAN CORPUSCULAR HGB CONC 31.6 g/dL (32.0-36.0); MEAN CORPUSCULAR VOLUME 88.3 fL (80.0-94.0); MEAN PLATELET VOLUME 10.2 fL (7.4-11.4); MONOCYTES # (AUTO) 0.8 10^3/uL (0.0-1.0); MONOCYTES % (AUTO) 5.9 %; NEUTROPHILS # (AUTO) 11.4 10^3/uL (1.5-6.6); NEUTROPHILS % (AUTO) 85.8 %; PLT - PLATELET COUNT 131 10^3/uL (130-450); RED BLOOD COUNT 4.44 10^6/uL (4.70-6.10); WHITE BLOOD COUNT 13.3 x10^3/uL (4.8-10.8)
[2022-12-24 17:52] LABS: ALBUMIN 3.3 g/dL (3.2-5.5); ETOH - ETHANOL < 10.0 mg/dL; MAGNESIUM 2.8 mg/dL (1.7-2.3)
[2022-12-24 17:55] LABS: ALBUMIN/GLOBULIN RATIO 1.1 (1.0-2.2); ALKALINE PHOSPHATASE 165 IU/L (42-121); ALT ALANINE AMINOTRANSFERASE 369 IU/L (10-60); AST ASPARTATE AMINOTRANSFERASE 523 IU/L (10-42); BILIRUBIN,TOTAL 2.2 mg/dL (0.2-1.0); CALCIUM 9.7 mg/dL (8.5-10.3); CARBON DIOXIDE - CO2 22 mmol/L (21-32); CHLORIDE 103 mmol/L (101-111); CREATININE 3.1 mg/dL (0.6-1.3); GFR - MDRD 19 (>89); GLUCOSE 116 mg/dL (74-104); POTASSIUM 4.9 mmol/L (3.5-4.5); SODIUM 140 mmol/L (135-145); TOTAL PROTEIN 6.3 g/dL (6.4-8.9)
[2022-12-24 17:56] LABS: BUN - BLOOD UREA NITROGEN 117 mg/dL (6-20)
[2022-12-24 17:57] LABS: INR 1.9 (0.8-1.2); PT - PROTHROMBIN TIME 19.9 secs (9.9-12.6)
[2022-12-24] MEDS ORDERED: SODIUM CHLORIDE 0.9% 1,000 ML IV STA (18:02)
--- NOTE | 2022-12-24 18:23 | XRAY Report ---
PROCEDURE: Chest 1 View X-Ray INDICATIONS: ams TECHNIQUE: One view of the chest was acquired. COMPARISON: 11/12/2022. FINDINGS: Surgical changes and devices: Pacemaker. Lungs and pleura: No pleural effusions or pneumothorax. Mild interstitial pulmonary edema. Mediastinum: Significant interval increase in cardiomegaly. Consider pericardial effusion. Bones and chest wall: No suspicious bony lesions. Overlying soft tissues appear unremarkable. IMPRESSION: 1. Mild interstitial pulmonary edema. 2. Significant interval increase in cardiomegaly. Consider pericardial effusion. Comment: A CT of the chest would be a simple way to identify the presence or absence of significant p ericardial fluid. Reviewed by: Qamar Ibarra MD on 12/24/2022 6:21 PM PDT Approved by: Qamar Ibarra MD on 12/24/2022 6:21 PM PDT Station ID: [id number]
--- NOTE | 2022-12-24 19:59 | Ultrasound Report ---
PROCEDURE: Abdomen Limited INDICATIONS: Elevated liver enzymes TECHNIQUE: Real-time focused scanning was performed of the abdomen, with image documentation. COMPARISONS: CT abdomen and pelvis dated 09/01/2021 FINDINGS: Liver: Mild diffuse fatty change may indicate diffuse hepatic steatosis. No focal liver mass. Gallbladder: Gallbladder is distended. There is gallbladder sludge. There is gallbladder wall thicken ing and a small amount of fluid adjacent to the gallbladder. Incidental gallbladder polyp Biliary ducts: Intrahepatic bile ducts are non-dilated. Extrahepatic bile duct caliber measures 6.4 mm. Normal is 6-7 mm or less in diameter, or 10 mm or less post-cholecystectomy. Pancreas: Visualized portions of the pancreas are sonographically normal. Right kidney: Normal in size and echotexture. Right kidney measures 12.7 cm long. No hydronephrosis or nephrolithiasis. No solid masses. No complex renal cystic lesions which require follow-up. IVC: Intrahepatic inferior vena cava is patent. Miscellaneous: No free abdominal fluid. IMPRESSION: 1. Abnormal gallbladder. Gallbladder sludge. Distended gallbladder with a small amount of fluid adjac ent to the gallbladder. Cannot exclude acute cholecystitis. 2. Mild diffuse hepatic steatosis. Reviewed by: Qamar Ibarra MD on 12/24/2022 7:58 PM PDT Approved by: Qamar Ibarra MD on 12/24/2022 7:58 PM PDT Station ID: [id number]
--- NOTE | 2022-12-24 20:51 | CT Report ---
PROCEDURE: ABDOMEN/PELVIS WO INDICATIONS: ABD MASSES, Elevated liver enzymes TECHNIQUE: A CT scan of the abdomen and pelvis was performed without the use of intravenous contrast. Images we re recorded and evaluated at appropriate window settings. Reformats: coronal and sagittal. For radiat ion dose reduction, the following was used: automated exposure control, adjustment of mA and/or kV ac cording to patient size. COMPARISON: 09/21/2021 FINDINGS: Image quality: This study is limited by streak artifact, particularly through the upper abdomen. Lung bases and heart: Poorly defined opacities can be seen at both lung bases, which are new compared to 202. AICD leads are seen. There is moderate cardiomegaly. Liver: No solid mass. Gallbladder and biliary tree: Within normal limits. Spleen: No splenomegaly. Pancreas: No pancreatic ductal dilation. Adrenals: No adrenal nodule. Kidneys and ureters: The left kidney is atrophic. Along the posterior aspect of the right kidney, the re is a simple cyst that measures 5.3 cm. No darlene kidney stones are seen. Bowel and peritoneum: No bowel distension. There is mild ascites seen. Lymph nodes: No central or retroperitoneal adenopathy. Vessels: There is a distal abdominal aortic aneurysm seen measuring 3.7 cm AP. PELVIS Reproductive organs: Unremarkable. Bladder: No wall thickness, accounting for underdistention. Pelvic lymph nodes: No pelvic adenopathy by size criteria. Bones: No aggressive osseous abnormality. Relatively prominent lumbar spine degenerative change can b e seen. Other: No significant ventral or inguinal hernia. Bilateral scrotal hydrocele can be seen. IMPRESSION: Poorly defined opacities seen at both lung bases, which are new compared to 2021. Atypical infection is suspected. There is moderate cardiomegaly. Mild ascites is seen. Additional findings: AICD leads Simple right renal cyst Atrophic left kidney 3.7 cm distal abdominal aortic aneurysm Relatively prominent lumbar spine degenerative change Bilateral scrotal hydrocele Reviewed by: Dimas Camacho MD on 12/24/2022 7:49 PM SALLIE Approved by: Dimas Camacho MD on 12/24/2022 7:49 PM SALLIE Station ID: [id number]
--- NOTE | 2022-12-24 20:52 | CT Report ---
PROCEDURE: HEAD WO INDICATIONS: ams TECHNIQUE: Noncontrast 4.5 mm thick angled axial sections acquired from the foramen magnum to the vertex. For r adiation dose reduction, the following was used: automated exposure control, adjustment of mA and/or kV according to patient size. COMPARISON: Correlation is made with the accompanying CT of the abdomen and pelvis. FINDINGS: Image quality: Motion artifact is noted. Images were repeated, with some improvement. CSF spaces: Basal cisterns are patent. No extra-axial fluid collections. Ventricles are normal in size and shape. Brain: No midline shift. No intracranial masses or hemorrhage. Patterson-white matter interface is norm al. Skull and face: Calvarium and visualized facial bones are intact, without suspicious lesions. Sinuses: Visualized sinuses and mastoids are clear. IMPRESSION: No intracranial hemorrhage is seen. No significant intracranial abnormality is seen. Reviewed by: iDmas Camacho MD on 12/24/2022 7:50 PM AKONEIL Approved by: Dimas Camacho MD on 12/24/2022 7:50 PM AKONEIL Station ID: [id number]
[2022-12-24] MEDS ORDERED: PIPERACILLIN/TAZOBACTAM 3.375 GM in SODIUM CHLORIDE 0.9% MINIBAG 100 ML IV STA (20:59)
[2022-12-24] MEDS ORDERED: AZITHROMYCIN INJ 500 MG in SODIUM CHLORIDE 0.9% 250 ML IV STA (20:59)
[2022-12-24 21:17] LABS: BILIRUBIN,URINE NEGATIVE (NEGATIVE); GLUCOSE, URINE (UA) NEGATIVE (NEGATIVE); KETONES,URINE (UA) NEGATIVE (NEGATIVE); LEUKOCYTE ESTERASE, URINE SMALL (NEGATIVE); NITRITE,URINE NEGATIVE (NEGATIVE); OCCULT BLOOD,URINE NEGATIVE (NEGATIVE); PROTEIN,URINE TRACE mg/dL (NEGATIVE); UROBILINOGEN,URINE 0.2 (NORMAL) E.U./dL (NORMAL)
[2022-12-24 21:18] LABS: CLARITY,URINE HAZY (CLEAR)
[2022-12-24 21:27] LABS: RBC,URINE None Seen /HPF (0-5); SQUAMOUS EPITHELIAL CELL,UR RARE Squamous (<= Few)
[2022-12-24 21:28] LABS: AMORPHOUS SEDIMENT,UR Rare /LPF; BACTERIA,URINE Rare /HPF (None Seen)
[2022-12-24] MEDS ORDERED: ZINC OXIDE 20% OINT 30 GM TUBE TOP ONE (23:45)
[2022-12-24] MEDS ORDERED: COD LIVER OIL/ZINC OXIDE 113 GM TUBE TOP SCH (23:45)
[2022-12-24] MEDS: ZINC OXIDE 20% OINT 30 GM TUBE TOP SCH (23:53)
--- NOTE | 2022-12-25 00:01 | ED Physician Documentation ---
ED Addendum - Addendum Addendum: 12/24/22 23:59 I spoke with the hospitalist at [facility] (Dr. Higginbotham) who accepts patient to [place]. No beds available at this time, so will hold in [facility] ED until bed available. I subsequently was contacted by the on-call surgeon at [facility]. She suspects the findings are due to hepatic congestion and not cholecystitis.
[2022-12-25] MEDS ORDERED: D5.45NS W/20 MEQ KCL 1,000 ML IV STA (08:59)
[2022-12-25 09:10] LABS: BASOPHILS % (AUTO) 0.1 %; EOSINOPHILS % (AUTO) 0.1 %; HGB - HEMOGLOBIN 11.9 g/dL (14.0-18.0); LYMPHOCYTES # (AUTO) 0.8 10^3/uL (1.5-3.5); LYMPHOCYTES % (AUTO) 5.8 %; MEAN CORPUSCULAR HEMOGLOBIN 28.6 pg (27.0-31.0); MEAN CORPUSCULAR HGB CONC 32.2 g/dL (32.0-36.0); MEAN CORPUSCULAR VOLUME 88.9 fL (80.0-94.0); MEAN PLATELET VOLUME 10.3 fL (7.4-11.4); MONOCYTES # (AUTO) 0.8 10^3/uL (0.0-1.0); MONOCYTES % (AUTO) 5.8 %; NEUTROPHILS # (AUTO) 11.4 10^3/uL (1.5-6.6); NEUTROPHILS % (AUTO) 87.5 %; PLT - PLATELET COUNT 108 10^3/uL (130-450); RED BLOOD COUNT 4.16 10^6/uL (4.70-6.10); RED CELL DISTRIBUTION WIDTH 20.4 % (12.0-15.0)
[2022-12-25 09:12] LABS: RBC MORPHOLOGY (MULTIPLE) 4+ ANISOCYTOSIS (NORMAL); SLIDE REVIEW? Indicated
[2022-12-25 09:26] LABS: ALBUMIN 3.1 g/dL (3.2-5.5)
[2022-12-25] MEDS ORDERED: PIPERACILLIN/TAZOBACTAM 3.375 GM in SODIUM CHLORIDE 0.9% MINIBAG 100 ML IV SCH (09:30)
[2022-12-25 09:37] LABS: ALBUMIN/GLOBULIN RATIO 1.2 (1.0-2.2); BILIRUBIN,TOTAL 3.1 mg/dL (0.2-1.0); CALCIUM 9.3 mg/dL (8.5-10.3); CREATININE 3.1 mg/dL (0.6-1.3); TOTAL PROTEIN 5.6 g/dL (6.4-8.9)
[2022-12-25] MEDS ORDERED: SODIUM CHLORIDE 0.9% 1,000 ML IV STA (10:05)
[2022-12-25] MEDS ORDERED: ONDANSETRON 4 MG/2 ML VIAL IVP PRN (10:07)
[2022-12-25] MEDS ORDERED: ACETAMINOPHEN 500 MG TABLET PO PRN (10:07)
[2022-12-25] MEDS ORDERED: ENOXAPARIN 30 MG/0.3 ML SYRINGE SUBQ SCH (11:00)
[2022-12-25] MEDS: ZINC OXIDE 20% OINT 30 GM TUBE TOP SCH (11:05)
--- NOTE | 2022-12-25 15:15 | ED Physician Documentation ---
ED Addendum - Addendum Addendum: 12/25/22 15:11 The patient reportedly had significant confusion and not wanting blood drawn or IV restarted last night. He is doing better this morning with cooperative and coherent and answering questions well. Does have history of some dementia so this may have been exacerbated during the nighttime. At this point his is also here in he is very willing to do what she directs. We did hear from [facility] and they did not have any likely to have beds available today nor tomorrow and minimally possible Tuesday. As such I talked with the patient and his about looking for other facilities. They are in agreement to seek transfer to other places. I talked with the surgeon on-call at [facility] in [place] that did have beds available. The surgeon said they would refer it to the hospitalist service which will be Dr. Percy Logan. However given the labs and scenario, the concern would be for ductal blockage even though there was no signs of ductal dilatation on ultrasound. The surgeon directed the patient to be transferred ER to ER in order to be able to get further testing done such as a HIDA scan. The patient had a recent pacemaker placed so would not be able to get a MRI likely. Based on the HIDA scan would determine if the patient needed gastroenterology for ERCP or just the hospitalist service and surgery consult for cholecystectomy. I was put on the line with the emergency physician there by the transfer center. They are not acceptance of the patient transferred to the ER. Our [facility] ambulances are unavailable according to the lead medic. We will get [facility] ambulance to come in transfer the patient from our facility to [place]. Their ETA is approximately 5 PM which will be in still about 3 hours. The patient was advised of this. He and his are in agreement. He is comfortable at this time. He is getting some IV fluids and has gotten repeat dose of antibiotics. Disposition: The patient is transferred to acute care facility in stable condition Diagnoses: 1. General weakness and some confusion 2. Elevated liver enzymes 3. Cholecystitis 4. Coronary disease with recent pacemaker 5. History of congestive heart failure 6. Mild dementia
[2022-12-25 16:52] VITALS: BP 115/88
[2022-12-25] MEDS ORDERED: AZITHROMYCIN INJ 500 MG in SODIUM CHLORIDE 0.9% 250 ML IV SCH (21:00)
[2022-12-26] MEDS ORDERED: PANTOPRAZOLE 40 MG TABLET PO SCH (07:00)
== END 2022-12-25 18:05 | disposition short-term general hospital (02) ==
LOC: EDUNIT# → ED 16:46
DX: K81.9 Cholecystitis, unspecified (principal); J18.9 Pneumonia, unspecified organism; N17.9 Acute kidney failure, unspecified; R74.01 Elevation of levels of liver transaminase levels; I42.9 Cardiomyopathy, unspecified; N18.9 Chronic kidney disease, unspecified; E87.20 Acidosis, unspecified; R18.8 Other ascites; I25.10 Atherosclerotic heart disease of native coronary artery without angina pectoris; I50.9 Heart failure, unspecified; F03.90 Unspecified dementia, unspecified severity, without behavioral disturbance, psychotic disturbance, mood disturbance, and anxiety; R41.0 Disorientation, unspecified; Z95.810 Presence of automatic (implantable) cardiac defibrillator; Z20.822 Contact with and (suspected) exposure to COVID-19
CPT/HCPCS: 36415; 51701; 70450; 71045; 74176; 76705; 80053; 81001; 83605; 83690; 83735; 85025; 85610; 87040; 87086; 87635; 93005; 96361; 96365; 96366; 96368; 96372; 99285; A9270; G0480; J1650; 80320; 81003